=== PATIENT | male | born 1960 | race Caucasian/White ===

== ENCOUNTER 2023-10-14 16:26 | Emergency (ER) | payer OTHER, SELFPAY ==
[2023-10-14 16:47] VITALS: BP 145/83; PULSE 60; TEMP 36.6; O2SAT 99; BMI 25.1
--- NOTE | 2023-10-14 17:31 | ED_ITS ---
Documented by User: Champ Flores MD 10/14/23 17:33 HPI HPI - Back Pain/Injury General Chief Complaint: Back Pain/Injury Stated Complaint: LOWER BACK PAIN Time Seen by Provider: 10/14/23 17:27 Source: patient Mode of arrival: walk-in Limitations: no limitations History of Present Illness HPI Narrative: This patient is here complaining of severe right flank pain. It comes and goes but now it is more continuous. He has not had kidney stones. He says he has a little bit of hesitancy with urination but no blood no fever no previous kidney infections. No history of trauma or injury. He has not had previous back or surgical problems with his spine. It is in the right flank area that does not in the midline. It does not radiate to his buttock or leg. There is no paresis or paresthesias. Related Data Home Medications ?Medication ?Instructions ?Recorded ?Confirmed No Known Home Medications 10/14/23 10/14/23 Allergies Allergy/AdvReac Type Severity Reaction Status Date / Time No Known Drug Allergies Allergy Verified 10/14/23 16:47 Opioid HPI Opioid Management Most Recent Opioid Data: Last Pain Scale 6 10/14/23 19:13 Last ED Pain Assessment 10/14/23 19:13 Exam Narrative Exam Narrative: The patient is moving about on the cart his vital signs are noted blood pressure slightly up he appears to be uncomfortable and cannot find a comfortable position. Extensor houses longus function is normal. Straight leg raising test is negative. Pain cannot be reproduced with flexion extension of his hip area. He has no evidence of shingles or lesions over flank area he does have tenderness to percussion over the area. He has no abdominal findings or discomfort with palpation of his abdomen. Constitutional Vital Signs, click to edit/add: Last Vital Signs Temp 98.7 F 10/14/23 19:14 Pulse 75 10/14/23 19:14 Resp 16 10/14/23 19:14 BP 115/73 10/14/23 19:14 Pulse Ox 98 10/14/23 19:14 O2 Del Method Room Air 10/14/23 19:14 Course Vital Signs Vital signs: Vital Signs Temperature 97.9 F 10/14/23 16:47 Pulse Rate 60 10/14/23 16:47 Respiratory Rate 20 10/14/23 16:47 Blood Pressure 145/83 H 10/14/23 16:47 Pulse Oximetry 99 10/14/23 16:47 Oxygen Delivery Method Room Air 10/14/23 16:47 Temperature 98.7 F 10/14/23 19:14 Pulse Rate 75 10/14/23 19:14 Respiratory Rate 16 10/14/23 19:14 Blood Pressure 115/73 10/14/23 19:14 Pulse Oximetry 98 10/14/23 19:14 Oxygen Delivery Method Room Air 10/14/23 19:14 MDM - Back Pain/Injury Lab Data Labs: Lab Results 10/14/23 10/14/23 Range/Units 17:38 17:41 WBC 12.9 H (4.0-11.0) 10^3/uL RBC 5.13 (4.70-6.10) 10^6/uL Hgb 15.5 (14.0-18.0) g/dL Hct 46.4 (42.0-54.0) % MCV 90.4 (80.0-94.0) fL MCH 30.2 (25.9-34.0) pg MCHC 33.4 (29.9-35.2) g/dL RDW 13.3 (11.0-15.0) % Plt Count 283 (150-450) 10^3/uL MPV 9.6 (9.5-13.5) fL Neut % (Auto) 76.3 H (43.0-75.0) % Lymph % (Auto) 14.8 L (20.5-60.0) % [place] % (Auto) 7.8 (1.7-12.0) % Eos % (Auto) 0.4 L (0.9-7.0) % Baso % (Auto) 0.5 (0.2-2.0) % Neut # (Auto) 9.8 H (1.4-6.5) 10^3/uL Lymph # (Auto) 1.9 (1.2-3.8) 10^3/uL [place] # (Auto) 1.0 H (0.3-0.8) 10^3/uL Eos # (Auto) 0.1 (0.0-0.7) 10^3/uL Baso # (Auto) 0.1 (0.0-0.1) 10^3/uL Abs Immat Gran (auto) 0.03 (0.00-0.03) 10^3/uL Imm/Tot Granulo (auto) 0.2 (0.0-0.5) % Sodium 138 (136-145) mmol/L Potassium 3.7 (3.5-5.1) mmol/L Chloride 101 (98-107) mmol/L Carbon Dioxide 27.1 (21.0-32.0) mmol/L Anion Gap 13.6 BUN 16.0 (7.0-18.0) mg/dL Creatinine 1.27 (0.70-1.30) mg/dL Est GFR ( Amer) >60 (>=60) Est GFR (Non-Af Amer) 57 L (>=60) BUN/Creatinine Ratio 12.6 Glucose 123 H (74-106) mg/dL Calcium 9.0 (8.5-10.1) mg/dL Total Bilirubin 0.9 (0.2-1.0) mg/dL AST 25 (15-37) U/L ALT 44 (16-63) U/L Alkaline Phosphatase 66 (46-116) U/L Total Protein 7.6 (6.4-8.2) g/dL Albumin 4.1 (3.4-5.0) g/dL Globulin 3.5 g/dL Albumin/Globulin Ratio 1.2 Urine Color Yellow (YELLOW) Urine Clarity Clear (CLEAR) Urine pH >=9.0 A (5.0-9.0) Ur Specific [place] 1.020 (1.005-1.025) Urine Protein Trace (NEG/TRACE) mg/dL Urine Glucose (UA) Negative (NEGATIVE) mg/dL Urine Ketones Negative (NEGATIVE) mg/dL Urine Occult Blood Trace-i (NEGATIVE) Urine Nitrite Negative (NEGATIVE) Urine Bilirubin Negative (NEGATIVE) Urine Urobilinogen 2.0 A (0.2-1.0) EU/dL Ur Leukocyte Esterase Negative (NEGATIVE) Urine RBC 2-5 A (0-2) #/HPF Urine WBC 2-5 A (NONE SEEN) #/HPF Ur Squamous Epith Cells None seen (NONE/RARE) #/LPF Urine Crystals Seen A (None Seen) #/HPF Calcium Oxalate Crystal Few Urine Bacteria Large A (NONE SEEN) #/HPF Urine Casts None seen (NONE SEEN) #/LPF Urine Mucus Moderate A (NONE SEEN) Ur Culture Indicated? Yes Imaging Data Abdominal x-ray: Radiologist's impression: ITS Impressions Abdomen/Pelvis CT 10/14/23 17:32 IMPRESSION: Tiny obstructing calculus approximately 2 mm at or near right UV junction in the bladder with mild ureteral dilatation and moderate dilatation of the renal pelvis. Sclerotic densities proximal right femur warrant follow-up. Electronically authenticated by: SAMANTHA SMITH Date: 10/14/2023 19:31 Discharge Plan Discharge Stand Alone Forms: Portal Instructions Chief Complaint: Back Pain/Injury Clinical Impression: Renal colic, Acute UTI Patient Disposition: Home, Self-Care Prescriptions / Home Meds: No Action No Known Home Medications Print Language: Indian Instructions: Urinary Tract Infection in Men (ED), Renal Colic (ED) Additional Instructions: drink plenty of fluids. Follow up with a Urologist early next week. Return or go to local ER if nausea/vomiting or fever or generalized weakness Referrals: ANGIE CRENSHAW [Primary Care Provider] - 1 week Discharge Date/Time: 10/14/23 20:19 Documented by User: Nicolas Spaulding MD 10/15/23 06:08 HPI HPI - Back Pain/Injury General Chief Complaint: Back Pain/Injury Stated Complaint: LOWER BACK PAIN Time Seen by Provider: 10/14/23 17:27 Related Data Home Medications ?Medication ?Instructions ?Recorded ?Confirmed No Known Home Medications 10/14/23 10/14/23 Allergies Allergy/AdvReac Type Severity Reaction Status Date / Time No Known Drug Allergies Allergy Verified 10/14/23 16:47 Opioid HPI Opioid Management Most Recent Opioid Data: Last Pain Scale 6 10/14/23 19:13 Last ED Pain Assessment 10/14/23 19:13 Exam Constitutional Vital Signs, click to edit/add: Last Vital Signs Temp 98.7 F 10/14/23 19:14 Pulse 75 10/14/23 19:14 Resp 16 10/14/23 19:14 BP 115/73 10/14/23 19:14 Pulse Ox 98 10/14/23 19:14 O2 Del Method Room Air 10/14/23 19:14 Course Vital Signs Vital signs: Vital Signs Temperature 97.9 F 10/14/23 16:47 Pulse Rate 60 10/14/23 16:47 Respiratory Rate 20 10/14/23 16:47 Blood Pressure 145/83 H 10/14/23 16:47 Pulse Oximetry 99 10/14/23 16:47 Oxygen Delivery Method Room Air 10/14/23 16:47 Temperature 98.7 F 10/14/23 19:14 Pulse Rate 75 10/14/23 19:14 Respiratory Rate 16 10/14/23 19:14 Blood Pressure 115/73 10/14/23 19:14 Pulse Oximetry 98 10/14/23 19:14 Oxygen Delivery Method Room Air 10/14/23 19:14 MDM - Back Pain/Injury MDM Narrative Medical decision making narrative: care transferred at change of shift. Patient has UTI . CT pending and demonstrated 2mm stone at right UVJ. pain is now controlled. Patient has received Levaquin. He wants to follow up with Urology via his PCP whom he will contact in 2 days. Advised to go to Local ER if he becomes ill with nausea/vomiting or fever. Discharged with prescription of Levaquin and Toradol and advised to drink plenty of fluids Lab Data Labs: Lab Results 10/14/23 10/14/23 Range/Units 17:38 17:41 WBC 12.9 H (4.0-11.0) 10^3/uL RBC 5.13 (4.70-6.10) 10^6/uL Hgb 15.5 (14.0-18.0) g/dL Hct 46.4 (42.0-54.0) % MCV 90.4 (80.0-94.0) fL MCH 30.2 (25.9-34.0) pg MCHC 33.4 (29.9-35.2) g/dL RDW 13.3 (11.0-15.0) % Plt Count 283 (150-450) 10^3/uL MPV 9.6 (9.5-13.5) fL Neut % (Auto) 76.3 H (43.0-75.0) % Lymph % (Auto) 14.8 L (20.5-60.0) % [place] % (Auto) 7.8 (1.7-12.0) % Eos % (Auto) 0.4 L (0.9-7.0) % Baso % (Auto) 0.5 (0.2-2.0) % Neut # (Auto) 9.8 H (1.4-6.5) 10^3/uL Lymph # (Auto) 1.9 (1.2-3.8) 10^3/uL [place] # (Auto) 1.0 H (0.3-0.8) 10^3/uL Eos # (Auto) 0.1 (0.0-0.7) 10^3/uL Baso # (Auto) 0.1 (0.0-0.1) 10^3/uL Abs Immat Gran (auto) 0.03 (0.00-0.03) 10^3/uL Imm/Tot Granulo (auto) 0.2 (0.0-0.5) % Sodium 138 (136-145) mmol/L Potassium 3.7 (3.5-5.1) mmol/L Chloride 101 (98-107) mmol/L Carbon Dioxide 27.1 (21.0-32.0) mmol/L Anion Gap 13.6 BUN 16.0 (7.0-18.0) mg/dL Creatinine 1.27 (0.70-1.30) mg/dL Est GFR ( Amer) >60 (>=60) Est GFR (Non-Af Amer) 57 L (>=60) BUN/Creatinine Ratio 12.6 Glucose 123 H (74-106) mg/dL Calcium 9.0 (8.5-10.1) mg/dL Total Bilirubin 0.9 (0.2-1.0) mg/dL AST 25 (15-37) U/L ALT 44 (16-63) U/L Alkaline Phosphatase 66 (46-116) U/L Total Protein 7.6 (6.4-8.2) g/dL Albumin 4.1 (3.4-5.0) g/dL Globulin 3.5 g/dL Albumin/Globulin Ratio 1.2 Urine Color Yellow (YELLOW) Urine Clarity Clear (CLEAR) Urine pH >=9.0 A (5.0-9.0) Ur Specific [place] 1.020 (1.005-1.025) Urine Protein Trace (NEG/TRACE) mg/dL Urine Glucose (UA) Negative (NEGATIVE) mg/dL Urine Ketones Negative (NEGATIVE) mg/dL Urine Occult Blood Trace-i (NEGATIVE) Urine Nitrite Negative (NEGATIVE) Urine Bilirubin Negative (NEGATIVE) Urine Urobilinogen 2.0 A (0.2-1.0) EU/dL Ur Leukocyte Esterase Negative (NEGATIVE) Urine RBC 2-5 A (0-2) #/HPF Urine WBC 2-5 A (NONE SEEN) #/HPF Ur Squamous Epith Cells None seen (NONE/RARE) #/LPF Urine Crystals Seen A (None Seen) #/HPF Calcium Oxalate Crystal Few Urine Bacteria Large A (NONE SEEN) #/HPF Urine Casts None seen (NONE SEEN) #/LPF Urine Mucus Moderate A (NONE SEEN) Ur Culture Indicated? Yes Imaging Data Abdominal x-ray: Radiologist's impression: ITS Impressions Abdomen/Pelvis CT 10/14/23 17:32
--- NOTE | 2023-10-14 17:32 | CT_ITS ---
The [address] [address] Patient Name: NELDA BAIN MRN: [id number] date: 1960 Sex: M Assigned Patient Location: ED.MAIN Current Patient Location: ED.MAIN Accession/Order Number: [id number] Exam Date: 10/14/2023 18:00 Report Date: 10/14/2023 19:31 At the request of: JOSE RAO Procedure: CT abdomen pelvis wo con EXAM: CT abdomen pelvis wo con HISTORY: Right flank pain COMPARISON: None. TECHNIQUE: CT abdomen pelvis noncontrast. FINDINGS: Lower chest: Lung bases clear, no pleural effusion. No acute process. ABDOMEN: Moderate dilatation right renal pelvis mild ureteral dilatation consistent with obstruction. Distal right calculus approximately 2 mm projects in the bladder probably at the UV junction. Right kidney is mildly prominent there is perinephric stranding consistent with obstruction. No renal calculus seen. Normal left kidney and ureter. Liver unremarkable. Prominent fluid-filled gallbladder without calcification. Adrenal glands, pancreas spleen unremarkable. No ascites or free fluid. No periaortic adenopathy. Normal size aorta. Large amount of fluid in the stomach suggests recent meal. No small bowel or colonic distention. Normal appendix right lower quadrant. Small mesenteric lymph nodes right lower quadrant nonspecific but no significant adenopathy seen. Pelvis: No mass or adenopathy. Tiny calculus projects over the right bladder probably at the UV junction approximately 2 mm. Mildly prominent prostate with calcification. Normal left pelvic ureter. MUSCULOSKELETAL: Sclerotic densities proximal right femur greater trochanter partially imaged. Question etiology, needs follow-up. No other focal bone density CT/CT abdomen pelvis wo con IMPRESSION: Tiny obstructing calculus approximately 2 mm at or near right UV junction in the bladder with mild ureteral dilatation and moderate dilatation of the renal pelvis. Sclerotic densities proximal right femur warrant follow-up. Electronically authenticated by: SAMANTHA SMITH Date: 10/14/2023 19:31
[2023-10-14] MEDS: KETOROLAC TROMETHAMINE 30 MG/ML VIAL IVP (17:46)
[2023-10-14 18:01] LABS: Basophils Absolute Auto 0.1 10^3/uL (0.0-0.1); Basophils Percent Auto 0.5 % (0.2-2.0); Eosinophils Absolute Auto 0.1 10^3/uL (0.0-0.7); Eosinophils Percent Auto 0.4 % (0.9-7.0); Hematocrit 46.4 % (42.0-54.0); Hemoglobin 15.5 g/dL (14.0-18.0); Immature Granulocytes Abs Auto 0.03 10^3/uL (0.00-0.03); Immature Granulocytes Pct Auto 0.2 % (0.0-0.5); Lymphocytes Absolute Auto 1.9 10^3/uL (1.2-3.8); Lymphocytes Percent Auto 14.8 % (20.5-60.0); Mean Corpuscular HGB Conc 33.4 g/dL (29.9-35.2); Mean Corpuscular Hemoglobin 30.2 pg (25.9-34.0); Mean Corpuscular Volume 90.4 fL (80.0-94.0); Mean Platelet Volume 9.6 fL (9.5-13.5); Monocytes Percent Auto 7.8 % (1.7-12.0); Neutrophils Absolute Auto 9.8 10^3/uL (1.4-6.5); Neutrophils Percent Auto 76.3 % (43.0-75.0); Platelet Count 283 10^3/uL (150-450); Red Blood Count 5.13 10^6/uL (4.70-6.10); Red Cell Distribution Width 13.3 % (11.0-15.0); White Blood Count 12.9 10^3/uL (4.0-11.0)
[2023-10-14 18:03] LABS: Bilirubin Urine NEGATIVE (NEGATIVE); Blood Urine TRACE-I (NEGATIVE); Clarity Urine CLEAR (CLEAR); Color Urine YELLOW (YELLOW); Glucose Urine UA NEGATIVE (NEGATIVE); Ketones Urine NEGATIVE (NEGATIVE); Leukocyte Esterase Urine NEGATIVE (NEGATIVE); Nitrite Urine NEGATIVE (NEGATIVE); Protein Urine TRACE mg/dL (NEG/TRACE); pH Urine >=9.0 (5.0-9.0)
[2023-10-14 18:05] LABS: Urine Microscopic Indicated YES
[2023-10-14 18:22] LABS: Alanine Aminotransferase 44 U/L (16-63); Albumin Globulin Ratio 1.2; Albumin Level 4.1 g/dL (3.4-5.0); Alkaline Phosphatase 66 U/L (46-116); Anion Gap 13.6; Aspartate Amino Transferase 25 U/L (15-37); BUN Creatinine Ratio 12.6; Bilirubin Total 0.9 mg/dL (0.2-1.0); Carbon Dioxide 27.1 mmol/L (21.0-32.0); Chloride 101 mmol/L (98-107); Estimated GFR (African America >60 (>=60); Estimated GFR (Non-African Ame 57 (>=60); Globulin 3.5 g/dL; Glucose 123 mg/dL (74-106); Potassium 3.7 mmol/L (3.5-5.1); Sodium 138 mmol/L (136-145); Total Protein 7.6 g/dL (6.4-8.2)
[2023-10-14 18:39] LABS: Bacteria Urine LARGE #/HPF (NONE SEEN); Calcium Oxalate Crystals Urine FEW; Cast Seen? NONE SEEN #/LPF (NONE SEEN); Crystals Seen? Seen #/HPF (None Seen); Mucus Urine MODERATE (NONE SEEN); Squamous Epithelial Cell Urine NONE SEEN #/LPF (NONE/RARE)
[2023-10-14 18:40] LABS: Urine Culture Indicated YES
[2023-10-14] MEDS: LEVOFLOXACIN 750 MG TABLET PO (19:07)
[2023-10-14 19:14] VITALS: BP 115/73; PULSE 75; TEMP 37.1; O2SAT 98
[2023-10-14] MEDS: ORPHENADRINE 60 MG/ 2 ML VIAL IV (19:39)
[2023-10-14] MEDS: KETOROLAC TROMETHAMINE 10 MG TABLET 20 MG PO (20:09)
== END 2023-10-14 20:19 | disposition home or self-care (01) ==
PROVIDERS: Emergency Medicine Emergency Medical Services; Emergency Provider Internal Medicine; PCP Family Medicine
DX: N39.0 Urinary tract infection, site not specified (principal); N23 Unspecified renal colic
CPT/HCPCS: 36415; 74176; 80053; 81001; 85025; 87086; 96374; 96375; 99285; J1885; J2360

== ENCOUNTER 2024-12-03 06:30 | Outpatient (OUT) | payer OTHER, SELFPAY ==
[2024-12-03 06:49] LABS: Hematocrit 45.2 % (42.0-54.0); Hemoglobin 15.5 g/dL (14.0-18.0); Immature Granulocytes Abs Auto 0.01 10^3/uL (0.00-0.03); Immature Granulocytes Pct Auto 0.1 % (0.0-0.5); Lymphocytes Absolute Auto 2.8 10^3/uL (1.2-3.8); Mean Corpuscular HGB Conc 34.3 g/dL (29.9-35.2); Mean Corpuscular Hemoglobin 30.7 pg (25.9-34.0); Mean Corpuscular Volume 89.5 fL (80.0-94.0); Platelet Count 257 10^3/uL (150-450); Red Blood Count 5.05 10^6/uL (4.70-6.10); White Blood Count 7.1 10^3/uL (4.0-11.0)
[2024-12-03 07:41] LABS: Alanine Aminotransferase 36 U/L (16-63); Albumin Globulin Ratio 1.1; Albumin Level 3.7 g/dL (3.4-5.0); Alkaline Phosphatase 64 U/L (46-116); Anion Gap 13.0; Aspartate Amino Transferase 24 U/L (15-37); Blood Urea Nitrogen 22.0 mg/dL (7.0-18.0); Calcium 8.7 mg/dL (8.5-10.1); Carbon Dioxide 28.6 mmol/L (21.0-32.0); Chloride 104 mmol/L (98-107); Cholesterol 225 mg/dL (<=200); Estimated GFR (African America >60 (>=60 mL/min/1.73m^2); Estimated GFR (Non-African Ame >60 (>=60 mL/min/1.73m^2); Globulin 3.5 g/dL; Glucose 99 mg/dL (74-106); HDL Cholesterol 73 mg/dL (40-60); Potassium 3.6 mmol/L (3.5-5.1); Sodium 142 mmol/L (136-145); Total Protein 7.2 g/dL (6.4-8.2); Triglycerides 48 mg/dL (<=150); VLDL CHOLESTEROL 9.6 mg/dL
== END 2024-12-03 06:31 | disposition home or self-care (01) ==
LOC: LAB 06:31
PROVIDERS: PCP Family Medicine; Visit Provider Family Medicine
DX: Z00.00 Encounter for general adult medical examination without abnormal findings (principal); Z83.3 Family history of diabetes mellitus; Z80.42 Family history of malignant neoplasm of prostate; Z12.5 Encounter for screening for malignant neoplasm of prostate
CPT/HCPCS: 36415; 80053; 80061; 85025; G0103